=== PATIENT | female | born 1965 | race Caucasian/White ===

== ENCOUNTER 2018-05-18 07:49 | Emergency (ER) | payer BC ==
[2018-05-18 08:19] VITALS: BP 121/80
--- NOTE | 2018-05-18 08:36 | UC ---
Respiratory Complaint HPI - HPI Summary HPI Summary: The patient is a 52-year-old female with a less than 24-hour history of cough wheezing and congestion. She has been using her rescue inhaler. She may be febrile. She has nasal congestion and postnasal drip as well as sore throat. She has had chills. - History of Current Complaint Chief Complaint: UCRespiratory Stated Complaint: NASAL CONGESTION,EAR PAIN,SORE THROAT Time Seen by Provider: 05/18/18 08:23 Hx Obtained From: Patient Hx Last Menstrual Period: unknown Onset/Duration: Gradual Onset, Lasting Hours Timing: Constant Severity Initially: Moderate Severity Currently: Moderate Pain Intensity: 2 Pain Scale Used: 0-10 Numeric Character: Cough: Nonproductive Associated Signs And Symptoms: Positive: Chills, Wheezing, Nasal Congestion - Allergies/Home Medications Allergies/Adverse Reactions: Allergies Allergy/AdvReac Type Severity Reaction Status Date / Time hydrocodone Allergy Itching Verified 05/18/18 08:13 oxycodone Allergy Itching Verified 05/18/18 08:13 Home Medications: Home Medications Albuterol HFA INHALER* [Ventolin HFA Inhaler*] 2 puff INH Q4H PRN 05/18/18 [ History Confirmed 05/18/18] guaiFENesin [Mucinex] 600 mg PO BID 05/18/18 [History Confirmed 05/18/18] PMH/Surg Hx/FS Hx/Imm Hx Previously Healthy: Yes Respiratory History: Asthma, Bronchitis - Surgical History Surgical History: Yes Surgery Procedure, Year, and Place: SINUS SURGERY- TWICE, BILATERAL CTR,[facility]. ENDOMETRIAL ABLATION NOVEMBER 2013. bilateral carpal tunnel. HYSTERECTOMY - Family History Known Family History: Positive: Cardiac Disease - Social History Alcohol Use: Daily Alcohol Amount: 1 glass of wine/daily Substance Use Type: None Smoking Status (MU): Former Smoker When Did the Patient Quit Smoking/Using Tobacco: 30 YEARS AGO - Immunization History Most Recent Influenza Vaccination: 2012 Review of Systems All Other Systems Reviewed And Are Negative: Yes Constitutional: Positive: Chills, Fatigue Skin: Positive: Negative Eyes: Positive: Negative ENT: Positive: Sore Throat, Nasal Discharge, Sinus Congestion Respiratory: Positive: Cough Cardiovascular: Positive: Negative Gastrointestinal: Positive: Negative Genitourinary: Positive: Negative Motor: Positive: Negative Neurovascular: Positive: Negative Musculoskeletal: Positive: Negative Neurological: Positive: Negative Psychological: Positive: Negative Is Patient Immunocompromised?: No Physical Exam Triage Information Reviewed: Yes Appearance: Well-Appearing, No Pain Distress, Well-Nourished Vital Signs: Initial Vital Signs Temp 97.5 F 05/18/18 08:14 Pulse 89 05/18/18 08:14 Resp 17 05/18/18 08:14 BP 121/80 05/18/18 08:14 Pulse Ox 100 05/18/18 08:14 Vital Signs Reviewed: Yes Eyes: Positive: Conjunctiva Clear ENT: Positive: Hearing grossly normal, Pharyngeal erythema - R>L, Nasal congestion, Nasal drainage, TMs normal, Uvula midline. Negative: Tonsillar swelling, Tonsillar exudate, Trismus, Muffled voice, Hoarse voice, Dental tenderness, Sinus tenderness Neck: Positive: Supple, Nontender, No Lymphadenopathy Respiratory: Positive: No respiratory distress, No accessory muscle use, Wheezing - with forced respiration Cardiovascular: Positive: RRR, No Murmur Bowel Sounds: Positive: Present Musculoskeletal: Positive: ROM Intact, No Edema Neurological: Positive: Alert Psychological Exam: Normal Skin Exam: Normal UC Diagnostic Evaluation - Laboratory O2 Sat by Pulse Oximetry: 100 - normal/not hypoxic Diagnostic Studies Comment: strep (-), RS (-) Respiratory Course/Dx - Differential Dx/Diagnosis Provider Diagnosis: Bronchospasm with bronchitis, acute Discharge - Sign-Out/Discharge Documenting (check all that apply): Patient Departure All imaging exams completed and their final reports reviewed: No Studies - Discharge Plan Condition: Stable Disposition: HOME Prescriptions: Albuterol HFA INHALER* [Ventolin HFA Inhaler*] 2 puff INH QID #1 mdi predniSONE [Deltasone 20 MG TAB] 40 mg PO DAILY #10 tab Patient Education Materials: Acute Bronchitis (ED) Forms: *Work Release Referrals: Clarissa Linton MD [Primary Care Provider] - Additional Instructions: recheck for new or worsening symptoms recheck in 4 days if not better - Billing Disposition and Condition Condition: STABLE Disposition: Home
== END 2018-05-18 09:13 | disposition home or self-care (01) ==
LOC: UCCORT 07:49
DX: J20.9 Acute bronchitis, unspecified (principal); J45.909 Unspecified asthma, uncomplicated; Z87.891 Personal history of nicotine dependence; Z88.5 Allergy status to narcotic agent
CPT/HCPCS: 87651; 99212; G0463

== ENCOUNTER 2018-07-30 09:07 | Emergency (ER) | payer BC ==
[2018-07-30] MEDS ORDERED: Naproxen TAB* 250 MG PO ONE (09:18)
[2018-07-30 09:20] VITALS: BP 133/76
--- NOTE | 2018-07-30 09:25 | UC ---
Minor Trauma HPI - HPI Summary HPI Summary: 52-year-old female presents with complaints of left foot pain and right chest wall pain after accidentally tripping and falling yesterday. Denies hitting head , losing consciousness, or other injury. States she is unsure of exact mechanism of injury however she did fall forward and landed on the ground. States she was able to bear weight and ambulate immediately after the injury as well as in the clinic. Complains of pain to the lateral aspect of her left foot that worsens with weightbearing. She took ibuprofen last night with some relief in the pain and has been icing the affected area. States chest wall pain is mild and only noticeable with a very deep breath or palpation. Denies fever, chills, headache, dizziness, palpitations, shortness of breath, abdominal pain, nausea, vomiting, or numbness or tingling in the foot or toes. - History of Current Complaint Chief Complaint: UCLowerExtremity Stated Complaint: L FOOT INJURY Time Seen by Provider: 07/30/18 09:13 Hx Obtained From: Patient Hx Last Menstrual Period: unknown Pain Intensity: 7 - Allergies/Home Medications Allergies/Adverse Reactions: Allergies Allergy/AdvReac Type Severity Reaction Status Date / Time hydrocodone Allergy Itching Verified 07/30/18 09:20 oxycodone Allergy Itching Verified 07/30/18 09:20 PMH/Surg Hx/FS Hx/Imm Hx Respiratory History: Asthma - Surgical History Surgical History: Yes Surgery Procedure, Year, and Place: SINUS SURGERY- TWICE, BILATERAL CTR,D&C. ENDOMETRIAL ABLATION NOVEMBER 2013. bilateral carpal tunnel. HYSTERECTOMY - Family History Known Family History: Positive: Cardiac Disease - Social History Occupation: Employed Full-time Lives: With Family Alcohol Use: Occasionally Alcohol Amount: 1 glass of wine/daily Substance Use Type: None Smoking Status (MU): Former Smoker When Did the Patient Quit Smoking/Using Tobacco: 30 YEARS AGO - Immunization History Most Recent Influenza Vaccination: 2012 Review of Systems All Other Systems Reviewed And Are Negative: Yes Constitutional: Positive: Negative Skin: Negative: Bruising Respiratory: Positive: Other - Right chest wall pain. Negative: Shortness Of Breath, Cough Cardiovascular: Negative: Palpitations Gastrointestinal: Positive: Negative Genitourinary: Positive: Negative Motor: Negative: Weakness Neurovascular: Negative: Decreased Sensation Musculoskeletal: Positive: Other: - See HPI Neurological: Positive: Negative Is Patient Immunocompromised?: No Physical Exam - Summary Physical Exam Summary: GENERAL APPEARANCE: Well developed, well nourished, alert and cooperative, and appears to be in no acute distress. HEAD: Atraumatic. normocephalic. NECK: Neck supple, non-tender. CARDIAC: Normal S1 and S2. No S3, S4 or murmurs. Rhythm is regular. There is no peripheral edema, cyanosis or pallor. Extremities are warm and well perfused. Capillary refill is less than 2 seconds. Peripheral pulses intact. LUNGS: Mild tenderness to the mid right chest wall from the mid axilla to lateral anterior chest. No bruising, crepitus or subcutaneous emphysema. Clear to auscultation without rales, rhonchi, wheezing or diminished breath sounds. ABDOMEN: Positive bowel sounds. Soft, nondistended, nontender. No guarding or rebound. No masses or hepatosplenomegally. MUSKULOSKELETAL: ROM intact to all extremities. No joint erythema or tenderness. Normal muscular development. Limping gait. BACK: Examination of the spine reveals normal gait and posture, no spinal deformity or tenderness, decreased range of motion or muscular spasm. EXTREMITIES: Tenderness to left lateral foot over the 4th and 5th metatarsals without erythema, ecchymosis, edema, or gross deformity. Circulation and sensation intact. SKIN: Skin normal color, texture and turgor. Triage Information Reviewed: Yes Vital Signs: Initial Vital Signs Temp 96.9 F 07/30/18 09:14 Pulse 87 07/30/18 09:14 Resp 18 07/30/18 09:14 BP 133/76 07/30/18 09:14 Pulse Ox 100 07/30/18 09:14 Vital Signs Reviewed: Yes Diagnostics - Radiology No standard instances Radiology Interpretation Completed By: Radiologist Summary of Radiographic Findings: Order Information: FOOT LEFT 3+ VWS. Accession Number: [id number]. CPT: 80452. Indication: Lateral LEFT foot pain post fall. Attention base of fifth metatarsal. Comparison: No relevant prior exams available on the [facility] for comparison. Technique: AP, lateral, and oblique views LEFT foot. Report: No cortical disruption or suspicious trabecular irregularity to suggest fracture. Normal articular alignment. Unremarkable soft tissue contours. IMPRESSION: #. No evidence for fracture. Minor Trauma Course/Dx - Course Course Of Treatment: 52-year-old female presents with complaints of left foot pain and right chest wall pain after accidentally tripping and falling yesterday. Denies hitting head, losing consciousness, or other injury. States she is unsure of exact mechanism of injury however she did fall forward and landed on the ground. States she was able to bear weight and ambulate immediately after the injury as well as in the clinic. Complains of pain to the lateral aspect of her left foot that worsens with weightbearing. She took ibuprofen last night with some relief in the pain and has been icing the affected area. States chest wall pain is mild and only noticeable with a very deep breath or palpation. Denies fever, chills, headache, dizziness, palpitations, shortness of breath, abdominal pain, nausea, vomiting, or numbness or tingling in the foot or toes. Afebrile. Vital signs stable. Exam reveals an adult female in no acute distress with mild mid right-sided chest wall tenderness extending from the mid axillary line to her anterior chest wall , clear bilateral breath sounds, tenderness to the lateral aspect of her left foot over the fourth and fifth metatarsals with out erythema, ecchymosis, or gross deformity, circulation sensation intact distally, and otherwise unremarkable exam. She was given a dose of naproxen 500 mg by mouth for pain. Left foot x-ray shows no evidence of a fracture. Recommending conservative treatment for a left foot sprain including 2-3 days of nonweightbearing then so progression to weightbearing as tolerated, patient states she has her own crutches, she was provided a postop shoe to use when she is resuming weightbearing, she was given a prescription for naproxen 500 mg every 12 hours for the next 5-7 days then as needed, and is recommended RICE. Deep breathing exercises in order to prevent pneumonia secondary to chest wall pain was discussed with the patient. She is to follow-up with orthopedic surgery in 7 days if symptoms do not improve. Anticipatory guidance and warning symptoms were reviewed with the patient. Verbalizes understanding and agrees with plan of care - Differential Dx/Diagnosis Differential Diagnosis/HQI/PQRI: Contusion(s), Fracture, Dislocation, Sprain Provider Diagnosis: Sprain of left foot, Chest wall injury Discharge - Sign-Out/Discharge Documenting (check all that apply): Patient Departure All imaging exams completed and their final reports reviewed: Yes - Discharge Plan Condition: Stable Disposition: HOME Prescriptions: Naproxen [Naproxen 500 mg tab] 500 mg PO Q12HR #30 tablet Patient Education Materials: Crutch Instructions (ED), Foot Sprain (ED), Chest Wall Pain (ED) Referrals: Clarissa Linton MD [Primary Care Provider] - César Noel MD [Medical Doctor] - 7 Days (If no improvement in symptoms.) Additional Instructions: The x-ray of your foot performed in the clinic today showed no evidence of fracture. I suspect that you have sprain of the foot. Rest the foot as much as possible. Use the crutches you have at home to be non- weight bearing for the next 2-3 days then may slowly increase weight bearing as tolerated. Start weight bearing, use the post-op shoe provided to you until you are pain-free. Apply ice to the affected area for 15-20 minutes at least 4 times a day to help reduce pain and swelling. You may use an OTONIEL wrap or your compression sleeve to help reduce swelling. Keep the foot elevated while sitting to help reduce swelling. With the chest wall pain, it is important that you perform some deep breathing exercises as we discussed every 1-2 hours while awake to avoid developing pneumonia. Take naproxen 1 tab every 12 hours with food for the next 5-7 days then you may take every 12 hours as needed. Follow up with Dr. Noel, orthopedic surgery, in 7 days if no improvement in symptoms. Seek immediate medical attention in the emergency room if you develop fever greater than 100.5 F, you have pain that is not managed with pain medication, worsening chest pain, shortness of breath, numbness or tingling in the foot or toes, or any worsening of symptoms. - Billing Disposition and Condition Condition: STABLE Disposition: Home
== END 2018-07-30 10:02 | disposition home or self-care (01) ==
LOC: UCCORT 09:07
DX: S93.602A Unspecified sprain of left foot, initial encounter (principal); S29.9XXA Unspecified injury of thorax, initial encounter; J45.909 Unspecified asthma, uncomplicated; Z88.5 Allergy status to narcotic agent; Z87.891 Personal history of nicotine dependence; W01.0XXA Fall on same level from slipping, tripping and stumbling without subsequent striking against object, initial encounter; Y92.9 Unspecified place or not applicable
CPT/HCPCS: 99213; A9270-GY; G0463